=== PATIENT | male | born 1975 | race Caucasian/White ===

== ENCOUNTER 2022-10-25 10:58 | Day surgery (SDC) | payer BC ==
[~2022-10-25 10:58] MED LIST: Acetaminophen 1,000 MG in Premix Bag 1 BAG IV SCH; Clindamycin Phosphate in D5W 600 MG in Premix Bag 1 BAG IV ONE; Lactated Ringers 1,000 ML IV SCH; Pregabalin 75 MG Cap PO ONE; Ropivacaine 0.5% 5 MG/ML 30 ML SDV ONE
[2022-10-25] MEDS ORDERED: Pregabalin 75 MG Cap ONE (11:36)
[2022-10-25] MEDS ORDERED: Metoclopramide 10 MG/2 ML SDV IVPUSH PRN (11:47)
[2022-10-25] MEDS ORDERED: Ondansetron 4 MG/2 ML SDV IVPUSH PRN (11:47)
[2022-10-25] MEDS ORDERED: Albuterol 0.083% 2.5 MG/3 ML Neb Soln NEB PRN (11:47)
[2022-10-25] MEDS ORDERED: Naloxone 0.4 MG/ML SDV IVPUSH PRN (11:47)
[2022-10-25] MEDS ORDERED: HYDROmorphone 1 MG/ML Syringe IVPUSH PRN (11:47)
[2022-10-25] MEDS ORDERED: Morphine 2 MG/ML SYRINGE IVPUSH PRN (11:47)
[2022-10-25] MEDS ORDERED: fentaNYL 50 MCG/ML SDV IVPUSH PRN (11:47)
[2022-10-25] MEDS ORDERED: fentaNYL 100 MCG/2 ML SDV ONE ×3 (11:50→14:01)
[2022-10-25] MEDS ORDERED: fentaNYL 250 MCG/5 ML SDV ONE (11:50)
[2022-10-25] MEDS ORDERED: Propofol 200 MG/20 ML SDV ONE (11:50)
[2022-10-25] MEDS ORDERED: Bupivacaine 0.25% 30 ML SDV ONE (13:03)
[2022-10-25] MEDS ORDERED: Indocyanine Green 25 MG SDV ONE (13:21)
[2022-10-25] MEDS ORDERED: Ondansetron 4 MG/2 ML SDV ONE (14:21)
[2022-10-25] MEDS ORDERED: Sugammadex Sodium 200 MG/2 ML VIAL ONE (14:21)
[2022-10-25] MEDS ORDERED: Rocuronium Bromide 50 MG/5 ML Syringe ONE (14:21)
[2022-10-25] MEDS ORDERED: ePHEDrine 50 MG/ML SDV ONE (14:21)
[2022-10-25] MEDS ORDERED: Dexamethasone 4 MG/ML 5 ML MDV ONE (14:21)
[2022-10-25] MEDS ORDERED: Ketorolac 30 MG/ML SDV ONE (14:21)
[2022-10-25] MEDS ORDERED: Pregabalin 75 MG Cap PO ONE (15:22)
== END 2022-10-25 16:15 | disposition home or self-care (01) ==
LOC: MW.SDS 10:58
PROVIDERS: ATTEND Surgery
DX: K80.10 Calculus of gallbladder with chronic cholecystitis without obstruction (principal); D22.5 Melanocytic nevi of trunk; F32.A Depression, unspecified; E78.5 Hyperlipidemia, unspecified; F41.9 Anxiety disorder, unspecified; G47.00 Insomnia, unspecified; E66.9 Obesity, unspecified; Z88.0 Allergy status to penicillin; Z98.890 Other specified postprocedural states; Z68.31 Body mass index [BMI] 31.0-31.9, adult; Z79.899 Other long term (current) drug therapy
CPT/HCPCS: 11402; 47562; A9270; J1100; J1885; J2405; J2704; J2795; J3010; J3490; J7120; 00790; 64488